=== PATIENT | male | born 1990 | race Caucasian/White ===

== ENCOUNTER 2019-05-17 14:29 | Emergency (ER) | payer MEDICAID ==
[~2019-05-17] VITALS: Ht 172.7 cm; Wt 59.9 kg
[2019-05-17 15:02] VITALS: BP 128/65
[2019-05-17] MEDS ORDERED: TDAP [DIPH/PERTUSSIS/TET] 0.5 ML VIAL IM ONE ×2 (16:30→16:36)
== END 2019-05-17 17:48 | disposition home or self-care (01) ==
LOC: ER 14:30
DX: S16.1XXA Strain of muscle, fascia and tendon at neck level, initial encounter (principal); S39.012A Strain of muscle, fascia and tendon of lower back, initial encounter; S50.01XA Contusion of right elbow, initial encounter; S00.01XA Abrasion of scalp, initial encounter; V49.49XA Driver injured in collision with other motor vehicles in traffic accident, initial encounter; Y93.89 Activity, other specified; Y92.413 State road as the place of occurrence of the external cause; Y99.8 Other external cause status
CPT/HCPCS: 70450-TC; 72110-TC; 72125-TC; 73080-TC; 90715

== ENCOUNTER 2019-06-23 13:57 | Emergency (ER) | payer MEDICAID ==
[~2019-06-23] VITALS: Ht 172.7 cm; Wt 55.8 kg
--- NOTE | 2019-06-23 14:23 | NUR ---
PT CAME INTO THE ED C/O ABDOMINAL SILVERMAN, +NV, -DIARRHEA SINCE THIS MORNING. PT AAOX4, VSS, RBEATHING EVEN AND UNLABORED ON ROOM AIR W/ NAD NOTED. PT CONNECTED TO THE MONITOR AND POX.
--- NOTE | 2019-06-23 14:24 | NUR ---
AWAITING FOR MD BOTELLO
[2019-06-23] MEDS ORDERED: HYDROMORPHONE INJ 2 MG/ML DISP.SYRIN IV ONE (14:30)
[2019-06-23] MEDS ORDERED: FAMOTIDINE/PF INJ 20 MG/2 ML VIAL IV ONE ×2 (14:30→14:32)
[2019-06-23] MEDS ORDERED: diphenhydrAMINE HCL 50 MG/ML VIAL IV ONE (14:30)
[2019-06-23] MEDS ORDERED: IV NS 0.9% 1,000 ML BAG IV ONE (14:30)
[2019-06-23] MEDS ORDERED: ONDANSETRON HCL/PF 4 MG/2 ML VIAL IVP ONE (14:30)
[2019-06-23] MEDS ORDERED: IV NS 0.9% 1,000 ML IV ONE (14:30)
[2019-06-23] MEDS ORDERED: ONDANSETRON HCL/PF 4 MG/2 ML VIAL ONE (14:31)
[2019-06-23] MEDS ORDERED: diphenhydrAMINE HCL 50 MG/ML VIAL ONE (14:31)
[2019-06-23] MEDS ORDERED: HYDROMORPHONE 1 MG/1 ML DISP.SYRIN ONE (14:32)
[2019-06-23 14:46] LABS: BASOPHILS # (AUTO) 0.1 /CMM (0.0-0.2); BASOPHILS % (AUTO) 0.3 % (0.0-2.0); EOSINOPHILS % (AUTO) 0.1 % (0.0-6.0); HEMATOCRIT 49 % (39-51); HEMOGLOBIN 16.6 g/dL (13.5-17.5); LYMPHOCYTES # (AUTO) 1.2 /CMM (0.8-4.8); LYMPHOCYTES % (AUTO) 5.2 % (20.0-44.0); MEAN CORPUSCULAR HGB CONC 34 g/dl (31.0-36.0); MEAN CORPUSCULAR VOLUME 93 fL (80-96); MONOCYTES # (AUTO) 1.9 /CMM (0.1-1.30); MONOCYTES % (AUTO) 8.1 % (2.0-12.0); NEUTROPHILS # (AUTO) 20.2 /CMM (1.8-8.9); NEUTROPHILS % (AUTO) 86.3 % (43.0-81.0); PLATELET COUNT (AUTO) 260 /CMM (150-450); RED BLOOD CELL COUNT(AUTO) 5.31 MIL/uL (4.5-6.0); WHITE BLOOD COUNT (AUTO) 23.4 K/uL (4.3-11.0)
[2019-06-23 15:02] LABS: CREATININE 1.2 mg/dL (0.6-1.3); POTASSIUM 4.3 mmol/L (3.5-5.1)
[2019-06-23 15:07] LABS: ALBUMIN 4.8 g/dL (3.4-5.0); BILIRUBIN,DIRECT 0.1 mg/dL (0.0-0.2); BILIRUBIN,TOTAL 0.7 mg/dL (0.2-1.0); TOTAL PROTEIN, SERUM 8.3 g/dL (6.4-8.2)
--- NOTE | 2019-06-23 17:23 | NUR ---
Patient discharged to home in stable condition. Written and verbal after care instructions given. Patient verbalizes understanding of instruction and RX. IV removed. Catheter intact and site benign. Pressure and 4x4 applied to site. No bleeding noted. PT ambulatory with a steady gait.
[2019-06-23 17:24] VITALS: BP 106/46
== END 2019-06-23 17:25 | disposition home or self-care (01) ==
LOC: ER 13:58
DX: R11.2 Nausea with vomiting, unspecified (principal); E86.0 Dehydration; R10.9 Unspecified abdominal pain; R19.7 Diarrhea, unspecified; F12.10 Cannabis abuse, uncomplicated
CPT/HCPCS: 36415; 80048; 80076; 83690; 85025; 96361; 96374; 96375; 99283; J1170; J1200; J2405; J3490; J7030